=== PATIENT | male | born 1970 | race Caucasian/White ===

== ENCOUNTER 2017-09-26 16:40 | Emergency (ER) | payer MEDICAID ==
--- NOTE | 2017-09-26 17:48 | Emergency Department Record ---
History of Present Illness - General Chief Complaint: Laceration(s) Stated Complaint: FINGER INJURY/LAC Time Seen by Provider: 09/26/17 16:46 Source: Patient Mode of Arrival: Ambulatory Limitations: No limitations - History of Present Illness Initial Commments: Pt right handed hit left index finger with large hammer. Occured just [employer]. Extremity Location: Left: Hand Image Hand: 1 - injury Place: Work Context: Accidental Associated Symptoms: Pain Treatments Prior to Arrival: Bandage - Jo Coma Scale Eye Response: (4) Open spontaneously Motor Response: (6) Obeys commands Verbal Response: (5) Oriented Jo Total: 15 - Related Data Hx Tetanus Toxoid Vaccination: Yes Year of Tetanus Vaccination: 2018 Patient Tetanus UTD (within 5 yrs): Yes Previous Rx's Medication Instructions Recorded Hydrocodone/Acetaminophen [[place] 1 tab PO Q6H PRN 4 Days #12 tab 09/26/17 5mg/325mg] Allergies Allergy/AdvReac Type Severity Reaction Status Date / Time nut - unspecified Allergy Intermediate vomiting Verified 09/26/17 16:47 No Known Drug Allergies Allergy Verified 09/26/17 16:47 Travel Screening - Travel/Exposure Within Last 30 Days Have you traveled within the last 30 days?: No Review of Systems Constitutional: Denies: Chills, Fever Eyes: Denies: Eye pain ENT: Denies: Congestion Respiratory: Denies: Cough Cardiovascular: Denies: Chest pain Endocrine: Denies: Fatigue Gastrointestinal: Denies: Abdominal pain Musculoskeletal: Reports: As per HPI Skin: Reports: As per HPI Past Medical History - SOCIAL HISTORY Smoking Status: Current every day smoker Alcohol Use: None Drug Use: None - RESPIRATORY Hx Respiratory Disorders: No - CARDIOVASCULAR Hx Cardio Disorders: Yes Hx Hypertension: Yes - NEURO Hx Neuro Disorders: Yes Comment:: Spinal Meningitis - GI Hx GI Disorders: No - Hx Genitourinary Disorders: No - ENDOCRINE Hx Endocrine Disorders: No - MUSCULOSKELETAL Hx Musculoskeletal Disorders: No - PSYCH Hx Psych Problems: Yes Hx Anxiety: Yes - HEMATOLOGY/ONCOLOGY Hx Hematology/Oncology Disorders: No Family Medical History Any Significant Family History?: Yes Hx Cancer: Mother Hx HTN: Mother Physical Exam - General General Appearance: Alert, Oriented x3, Cooperative, Moderate distress Limitations: No limitations - Head Head exam: Atraumatic - Eye Eye exam: Normal appearance - ENT ENT exam: Normal exam - Respiratory Respiratory exam: Normal lung sounds bilaterally - Cardiovascular Cardiovascular Exam: Regular rate, Normal rhythm - GI/Abdominal GI/Abdominal exam: Soft. negative: Guarding - Extremities Image of Hand: 1 - crush injury with tissue missing. No FB. No nail injury. Irregular wound edges with some skin avulsed. No bone exposed. - Neurological Neurological exam: Abnormal gait, Alert - Psychiatric Psychiatric exam: Normal affect, Normal mood - Skin Skin exam: Other (see finger exam) Course Vital Signs 09/26/17 16:47 Temperature 98.2 F Pulse Rate 104 H Respiratory 20 Rate Blood Pressure 141/91 Pulse Ox 100 - Reevaluation(s) Reevaluation #1: 09/26/17 17:51 see xr neg, repair of injury Medical Decision Making - Management Options MDM Management: No Additional Work-up Planned - Data Complexity MDM Data: X-Ray Ordered and/or Reviewed - Radiology Data Radiology results: Report reviewed Disposition Disposition: Discharge Clinical Impression: Crushing injury of left index finger, initial encounter Disposition: Home, Self-Care Return To Work/School Note Provided: Yes Condition: (1) Good Additional Instructions: Maintain dressing clean and dry for 48 hours. RECHECK here in ER in 48 hours. Prescriptions: Hydrocodone/Acetaminophen [[place] 5mg/325mg] 1 tab PO Q6H PRN 4 Days #12 tab PRN Reason: Pain - General Quality - Quality Measures Quality Measures: N/A - Blood Pressure Screening Does Patient Have Any of the Following: No Blood Pressure Classification: Hypertensive Reading Systolic Measurement: 141 Diastolic Measurement: 91 Screening for High Blood Pressure: < Pre-Hypertensive BP, F/U Documented > [ G8950] Pre-Hypertensive Follow-up Interventions: Lifestyle modifications. Lifestyle Modification: Dietary Sodium Restriction Laceration - Other - Time Out Informed consent:: Informed consent obtained Confirmed first & last name, , procedure, correct site?: Yes Start Date:: 09/26/17 Start Time:: 17:52 - Location Location of laceration:: Left, Distal Laceration digit detail:: 1st Length of laceration:: 2 Length of laceration:: cm Hand/Finger: 1 - complex crush injury with tissue avulsion. No fb or bone exposed - Clean and Prep Laceration cleaning method:: Cleansed, Copious Irrigation Laceration cleaning agent:: Normal Saline - Local Anesthetic Bupivacaine dose:: 3 mL (digit block second finger) EMLA cream used?: No - Medication Medicated for procedure?: No - Procedural Detail Tissue detail:: Torn, Crushed, Devitalized, Debridement Foreign body in the wound?: No Undermining was preformed?: No Stent applied?: No [place] applied?: No Suture material/size:: 4-0: Prolene Number of skin sutures:: 1 Sub Q suture pattern:: Interrupted Neurovascular intact?: No (tissue avulsion at radial distal index finger left - unable to test sensati) - Post Procedural Detail Complications:: No Procedure Tolerated by Patient:: Well
--- NOTE | 2017-09-28 21:05 | RADIOLOGY REPORT ---
EXAM: FINGER(S), LEFT HISTORY: TRAUMA TO DISTAL LEFT INDEX FINGER THIS MORNING. HIT WITH HAMMER. TECHNIQUE: Three views of the left index finger are obtained. COMPARISON: None. ENCOUNTER: Initial. FINDINGS: There is normal bone mineralization. No acute fracture, dislocation, or destructive bone lesion is seen. Early degenerative changes of the second and third PIP joints, third DIP joint, and third MCP joint noted. No periarticular erosion. There is mild soft tissue swelling and skin deformity involving the lateral aspect of the tip of the second digit. No radiopaque foreign body identified. IMPRESSION: 1. NO ACUTE BONE NOR JOINT ABNORMALITY. 2. MILD DEGENERATIVE CHANGES. 3. SOFT TISSUE SWELLING WITH SKIN DEFORMITY INVOLVING THE TIP OF THE SECOND DIGIT. NO RADIOPAQUE FOREIGN BODY. JOB NUMBER: [id number] [facility]
== END 2017-09-26 18:00 | disposition home or self-care (01) ==
LOC: ER 16:40
DX: S67.191A Crushing injury of left index finger, initial encounter (principal); W22.8XXA Striking against or struck by other objects, initial encounter; Y99.0 Civilian activity done for income or pay
CPT/HCPCS: 12041; 73140; 99283; 99284

== ENCOUNTER 2017-09-28 15:53 | Emergency (ER) | payer MEDICAID ==
--- NOTE | 2017-09-28 16:29 | Emergency Department Record ---
History of Present Illness - General Chief Complaint: Wound, check Stated Complaint: RECHECK Time Seen by Provider: 09/28/17 16:10 Source: Patient Mode of arrival: Ambulatory Limitations: No limitations - History of Present Illness Initial Comments: The patient is here for a wound recheck. He sustained a crush injury to the distal L 2nd finger and did have one suture placed. The xray was neg for fx. Now he states the finger is still painful but improving. He denies any other injuries. Complaint: Wound re-check Onset/Timin -: Days(s) Initial Visit For: Laceration Returns Today for: Wound recheck Symptoms Since Prior Visit: No new symptoms Associated Symptoms: None Treatments Prior to Arrival: Dressings - Related Data Previous Rx's Medication Instructions Recorded Hydrocodone/Acetaminophen [[place] 1 tab PO Q6H PRN 4 Days #12 tab 09/26/17 5mg/325mg] Cephalexin [Keflex] 500 mg PO QID #20 cap 09/28/17 Allergies Allergy/AdvReac Type Severity Reaction Status Date / Time nut - unspecified Allergy Intermediate vomiting Verified 09/28/17 16:01 No Known Drug Allergies Allergy Verified 09/28/17 16:01 Travel Screening - Travel/Exposure Within Last 30 Days Have you traveled within the last 30 days?: No - Travel/Exposure Within Last Year Have you traveled outside the [place] in the last year?: No - Additonal Travel Details Have you been exposed to anyone with a communicable illness?: No - Travel Symptoms Symptom Screening: None Review of Systems Constitutional: Denies: Chills, Fever Past Medical History - SOCIAL HISTORY Smoking Status: Current every day smoker Alcohol Use: None Drug Use: None - RESPIRATORY Hx Respiratory Disorders: No - CARDIOVASCULAR Hx Cardio Disorders: Yes Hx Hypertension: Yes - NEURO Hx Neuro Disorders: Yes Comment:: Spinal Meningitis - GI Hx GI Disorders: No - Hx Genitourinary Disorders: No - ENDOCRINE Hx Endocrine Disorders: No - MUSCULOSKELETAL Hx Musculoskeletal Disorders: No - PSYCH Hx Psych Problems: Yes Hx Anxiety: Yes - HEMATOLOGY/ONCOLOGY Hx Hematology/Oncology Disorders: No Family Medical History Any Significant Family History?: Yes Hx Cancer: Mother Hx HTN: Mother Physical Exam - General General Appearance: Alert, Cooperative, No acute distress - Head Head exam: Atraumatic, Normocephalic - Eye Eye exam: Normal appearance, PERRL - Extremities Extremities exam: negative: Normal inspection (There is a crush injury to the L distal 2nd finger with a suture placed. The wound appears very healthy and not infected. The finger pad is clear and soft with no erythema. ) Course Vital Signs 09/28/17 16:03 Temperature 98.2 F Pulse Rate 95 H Respiratory 20 Rate Blood Pressure 119/80 Pulse Ox 99 - Reevaluation(s) Reevaluation #1: I explained to the patient that the wound appears very healthy and to continue to watch for infection. 09/28/17 16:36 Disposition Disposition: Discharge Clinical Impression: Injury, finger Qualifiers: Encounter type: sequela Laterality: left Qualified Code(s): S69.92XS - Unspecified injury of left wrist, hand and finger(s), sequela Disposition: Home, Self-Care Condition: (2) Stable Instructions: Crush Injury (ED) Additional Instructions: Keep the wound clean and dressed during the day. Please take the Keflex as directed and have the suture removed in 8 days. Return to the ER for any problems. Prescriptions: Cephalexin [Keflex] 500 mg PO QID #20 cap Forms: Patient Portal Access Time of Disposition: 16:28 Quality - Quality Measures Quality Measures: N/A - Blood Pressure Screening View Details: Yes Does Patient Have Any of the Following: No Blood Pressure Classification: Pre-Hypertensive BP Reading Systolic Measurement: 119 Diastolic Measurement: 80 Screening for High Blood Pressure: < Pre-Hypertensive BP, F/U Documented > [ G8950] Pre-Hypertensive Follow-up Interventions: Referral to alternative/primary care provider.
== END 2017-09-28 16:38 | disposition home or self-care (01) ==
LOC: ER 15:53
DX: S67.191A Crushing injury of left index finger, initial encounter (principal); W22.8XXA Striking against or struck by other objects, initial encounter; Y99.0 Civilian activity done for income or pay
CPT/HCPCS: 99282